=== PATIENT | male | born 1955 | race Caucasian/White ===

== ENCOUNTER 2023-06-18 15:41 | Emergency (ER) | payer SELFPAY ==
[2023-06-18 15:46] VITALS: BP 152/98
--- NOTE | 2023-06-18 16:36 | ED.GENMED ---
History of Present Illness
General
Chief Complaint: Fall
Source: patient
Exam Limitations: none
Time Seen by Provider: 06/18/23 16:27
Nursing documentation reviewed up to this point in time: agreed with
Travel History
Have you had any contact with someone who has COVID-19?: No
Do you have any symptoms of coronavirus? Fever > 100 degrees, chills, cough, shortness of breath, sore throat, loss of taste or smell, muscle aches, or headache?: No
History of Present Illness
History of Present Illness:
Patient presents ED secondary to persistent right-sided rib pain after trip and fall at work, where he landed on a piece of log. Denies any other injuries from the fall. Denies shortness of breath. Denies nausea or vomiting. Denies headache.
Denies neck pain. Denies loss of sensation or weakness. Patient does not take any blood thinning medications.
Past History
Past History
ED Past Medical History: Seizures
ED Past Surgical History: Negative Appendectomy or Bowel resection
Social History
Tobacco: Non-smoker
Alcohol: None
Drug: None
Personal:
Living: with family
Employment: Employed
Family History
Family History: Other (Noncontributory)
Review of Systems
Review of Systems
Allergies reviewed?: Yes
All Other Systems: ROS reviewed and negative except as documented in HPI and ROS
Constitutional: Reports no symptoms
EENT: Reports no symptoms
Respiratory: Reports no symptoms; Denies trouble breathing
Cardiac: Reports no symptoms
ABD/GI: Reports no symptoms
Musculoskeletal: Reports other (rib pain)
Skin: Reports no symptoms
Neurological: Reports no symptoms
Phy Exam
Physical Exam
Physical Exam:
Physical Exam
General: no apparent distress, not acutely ill. afebrile
Head: nc/at. eomi
Neck: supple. no meningeal signs.
Heart: s1/s2 regular rate and rhythm, no murmur. equal radial pulses.
Lungs: no acute respiratory distress. clear bilaterally. mild tenderness to palpation over rib #10-11, along midaxillary line.
Abdomen: normal bowel sounds. not tender.
Neuro: alert and oriented. no focal neurological deficits
Skin: no rash
Psychiatric: well kept. interactive and cooperative
Extremities: no edema. no calf tenderness.
Course
Orders/Labs/Results
Orders:
Orders
06/18/23 15:48
Ribs, Right 3 View W/PA Chest [CR Ribs-right 3 Vw W/pa Chest*] Urgent
Comment:
Reason For Exam: fell at work and landed on right rib area
06/18/23 16:36
Incentive Spirometry [Rx Incentive Spirometry] [RESP] Urgent
Frequency: q1h while awake
Vital Signs
Initial and Last Documented VS:
Initial Vital Signs
Temp Pulse Resp BP Pulse Ox
97.5 F 66 16 152/98 98
06/18/23 15:46 06/18/23 15:46 06/18/23 15:46 06/18/23 15:46 06/18/23 15:46
Last Documented Vital Signs
Temp Pulse Resp BP Pulse Ox
97.5 F 66 16 152/98 98
06/18/23 15:46 06/18/23 15:46 06/18/23 15:46 06/18/23 15:46 06/18/23 15:46
MDM/Problems Addressed
MDM/Problems Addressed:
X-ray: No acute findings. Patient remains hemodynamically stable, without any acute respiratory distress. Patient with likely an occult fracture versus more likely rib contusion. Patient will be given incentive spirometer to use at home along
with PCP follow-up as an outpatient.
*Critical Care Note
Total Time (30-74mins, 75-104mins- exclusive of procedures): Not Applicable
ED Attending Note
-
Portions of this chart may have been created with voice recognition software.� Occasional wrong word or��sound alike� substitutions may have occurred due to the inherent limitations of voice recognition software.
Discharge Plan
Departure
Patient Disposition: Home (Routine Discharge)
Date of Disposition: 06/18/23
Time of Disposition: 16:37
Patient with high blood pressure during this ER visit?: Yes
Discharge Problem:
Rib contusion
Instructions: How to Use an Incentive Spirometer, Contusion (DC)
Prescriptions:
No Action
phenytoin sodium extended 100 MG capsule
300 mg PO DAILY
Patient Comments:
pt. states that he 'thinks' he took this medication today but isn't sure.
acetaminophen [Tylenol Extra Strength] 500 MG tablet
1,000 mg PO Q6HPRN PRN (Reason: pain)
hydrocodone-acetaminophen 1 TABLET tablet
1 tab PO Q4HPRN PRN (Reason: pain) Qty: 10 0RF
tamsulosin 0.4 MG capsule
0.4 mg PO DAILY Qty: 5 0RF
Rx Instructions:
Take at bedtime to aid in passing kidney stone
ibuprofen 600 MG tablet
600 mg PO Q6 Qty: 20 0RF
ketorolac 10 MG tablet
10 mg PO Q8HPRN PRN (Reason: pain) Qty: 15 0RF
phenazopyridine 100 MG tablet
100 mg PO TID Qty: 6 0RF
Referrals:
Kavon Cody DO [Family Provider] -
Activity Restrictions/Additional Instructions:
As discussed, please follow-up with your primary care physician for reevaluation. In ED, x-ray did not reveal any acute abnormalities.
Interventions
Interventions:
*General Assessment Last Done: 06/18/23 17:03
*Neglect/Abuse Screening Last Done: 06/18/23 17:03
*ED COVID-19 Vaccine History Last Done: 06/18/23 15:46
*Nursing Disposition Last Done: 06/18/23 17:03
ED-Musculoskeletal Assessment Last Done: 06/18/23 16:54
ED- Neurological Assessment Last Done: 06/18/23 16:54
ED-Skin Assessment Last Done: 06/18/23 16:54
Discharge Date and Time
Discharge Date/Time: 06/18/23 17:04
== END 2023-06-18 17:04 | disposition home or self-care (01) ==
LOC: EMR 15:41
PROVIDERS: EMERGENCY PHYSICIAN Emergency Medicine; FAMILY PHYSICIAN Family Medicine
DX: S20.219A Contusion of unspecified front wall of thorax, initial encounter (principal); W01.0XXA Fall on same level from slipping, tripping and stumbling without subsequent striking against object, initial encounter; Y99.0 Civilian activity done for income or pay; R03.0 Elevated blood-pressure reading, without diagnosis of hypertension
CPT/HCPCS: 99283; 71101

== ENCOUNTER → 2023-07-24 14:07 | Outpatient (REF) | payer MEDICARE, OTHER, SELFPAY | LOC: RCS 14:07 | PROVIDERS: ATTENDING PHYSICIAN Internal Medicine Cardiovascular Disease; FAMILY PHYSICIAN Nurse Practitioner Adult Health | DX: R07.89 Other chest pain (principal) | CPT/HCPCS: 93017; 93350 ==